=== PATIENT | female | born 1985 | race African-American/Black ===

== ENCOUNTER → 2023-01-31 | Outpatient (CLI) | payer BC ==
--- NOTE | 2023-01-31 15:40 | US ---
EXAMINATION TYPE: US pelvis complete transvag DATE OF EXAM: 01/31/2023 COMPARISON: follow up from - US CLINICAL INDICATION: Female, 37 years old with history of N83.202 UNSPECIFIED OVARIAN CYST, LEFT SIDE ; known fibroid uterus TECHNIQUE: Transvaginal (TV) and Transabdominal (TA) . Transabdominal sonographic images of the pel vis were acquired. Transvaginal sonographic images were medically necessary to better assess the fol lowing anatomy: left ovary and endometrium Date of LMP: 01/23/23 EXAM MEASUREMENTS: Uterus: 10.2 x 7.9 x 7.1 cm Endometrial Stripe: 0.9 cm Right Ovary: 3.4 x 2.0 x 2.4 cm Left Ovary: 2.6 x 1.9 x 2.8 cm 1. Uterus: retroflexed, numerous scattered fibroids as seen on last scan; fluid seen within the cerv ical canal 2. Endometrium: wnl 3. Right Ovary: wnl 4. Left Ovary: wnl 5. Bilateral Adnexa: wnl 6. Posterior cul-de-sac: 2.9x 2.0 x 1.0 cm fluid within the cds IMPRESSION: 1. No evidence for acute process. 2. Fibroid uterus. 3. Trace fluid in the pelvis likely physiologic. 4. Fluid within the cervical canal likely representing blood products.
== END | disposition home or self-care (01) ==
LOC: RADUSWWP 14:15
PROVIDERS: ATTEND Family Medicine
DX: D25.9 Leiomyoma of uterus, unspecified (principal); N83.202 Unspecified ovarian cyst, left side
CPT/HCPCS: 76830; 76856

== ENCOUNTER → 2023-08-21 | Outpatient (CLI) | payer BC ==
--- NOTE | 2023-08-21 15:49 | US ---
EXAMINATION TYPE: US pelvic complete DATE OF EXAM: 08/21/2023 COMPARISON: Ultrasound pelvis 01/31/2023 CLINICAL INDICATION: Female, 37 years old with history of N92.6 IRREG MENSES; Bleeding x 3 months - s ubsides for a day or two. Hx multiple Fibroids, TECHNIQUE: . Transabdominal sonographic images of the pelvis were acquired. Transvaginal sonographi c images were not done due to pathology Date of LMP: EXAM MEASUREMENTS: Uterus: 12.3 x 7.4 x 7.2 cm Endometrial Stripe: 0.9 cm Right Ovary: 3.4 x 1.7 x 1.7 cm Left Ovary: 3.3 x 1.8 x 2.9 cm Uterus: 12.3 x 7.4 x 7.2 cm Endometrial Stripe: 0.9 cm Right Ovary: 3.4 x 1.7 x 1.7 cm Left Ovary: 3.3 x 1.8 x 2.9 cm Spectral, color and waveform doppler imaging shows good arterial and venous flow within the ovaries ; there is no evidence for ovarian torsion. 5. Bilateral Adnexa: WNL 6. Posterior cul-de-sac: WNL Multiple fibroids largest = Posterior LUKE = 4.6 x 3.6 x 4.7 cm Superior Right Pedunculated = 3.5 x 3.3 x 3.4 cm IMPRESSION: 1. No ultrasound evidence for an acute process. 2. Fibroid changes of the uterus redemonstrated. 3. Endometrium is within normal limits.
== END | disposition home or self-care (01) ==
LOC: RADUSWWP 14:47
PROVIDERS: ATTEND Family Medicine
DX: D25.9 Leiomyoma of uterus, unspecified (principal); N92.6 Irregular menstruation, unspecified
CPT/HCPCS: 76856

== ENCOUNTER → 2024-05-08 | Outpatient (CLI) | payer OTHER ==
--- NOTE | 2024-05-08 16:05 | XR ---
EXAMINATION TYPE: XR shoulder complete 3 views LT DATE OF EXAM: 05/08/2024 Comparison: None Clinical History: 38-year-old female S46.012A STRAIN OF MUSC/TEND THE ROTATOR CUFF OF LEFT SHOULD Findings: AC joint appears congruent and intact. Subacromial space is preserved. No acute fracture, subluxation , or dislocation is seen. Visualized left hemithorax is clear. Impression: No acute osseous abnormality seen.
== END | disposition home or self-care (01) ==
LOC: RADXRMAIN 15:24
PROVIDERS: ATTEND Emergency Medicine
DX: S46.012A Strain of muscle(s) and tendon(s) of the rotator cuff of left shoulder, initial encounter (principal)

== ENCOUNTER → 2024-07-17 | Outpatient (CLI) | payer OTHER ==
--- NOTE | 2024-07-18 05:45 | MR ---
EXAMINATION TYPE: MR shoulder LT wo con DATE OF EXAM: 07/17/2024 COMPARISON: Left shoulder x-ray May 08, 2024 HISTORY: Left shoulder pain and limited range of movement for about 3 months due to work related inju ry TECHNIQUE: Multiplanar, multisequence imaging of the left shoulder is performed without contrast. FINDINGS: Rotator Cuff: Intact supraspinatus and infraspinatus tendons. Intact subscapularis tendon. Rotator cu ff muscle bulk is maintained. Acromioclavicular Joint: No significant spurring or narrowing. Glenohumeral Joint: No significant spurring. Tiny effusion favors physiologic. Labrum: The labrum appears grossly intact given limitation of non-arthrogram study. Biceps Tendon: The long head of biceps is in normal location within bicipital groove. Bone marrow signal: No focal abnormal marrow signal is appreciated. Other: Focal increased fluid subdeltoid/subacromial bursa. IMPRESSION: No rotator cuff or labral tear. Moderate subdeltoid/subacromial bursitis. [facility], , 07/18/2024 5:43 AM
== END | disposition home or self-care (01) ==
LOC: RADMRIMAIN 16:28
PROVIDERS: ATTEND Emergency Medicine
DX: S46.012D Strain of muscle(s) and tendon(s) of the rotator cuff of left shoulder, subsequent encounter (principal)

== ENCOUNTER → 2025-04-18 | Outpatient (CLI) | payer BC ==
--- NOTE | 2025-04-18 15:54 | MR ---
INDICATION: Patient age:Female; 39 years old; Reason for study: R51.9 HEADACHE, UNSPECIFIED; PHH. COMPARISON: None. TECHNIQUE: Multi planar, multi sequence imaging was performed through the brain without intravenous c ontrast. FINDINGS: The marcelino-white junctions, ventricular system, basal cisterns appear unremarkable. Age-appropriate cer ebral cortical volume. Diffusion-weighted imaging shows no evidence of restricted diffusion to sugges t acute/subacute infarct. Intracranial arterial flow voids are maintained. Midline structures show no abnormality. There are 2 small foci of T2/FLAIR hyperintense signal within the right frontal lobe bearden bcortical white matter. Largest measures up to 2 mm (series 601, image 23). The susceptibility weight ed images do not reveal any evidence for micro-hemorrhage. The bone marrow signal is within normal limits. The globes are unremarkable. Multiple mucous retenti on cysts within the inferior bilateral maxillary sinuses. IMPRESSION: 1. No evidence of intracranial mass or acute/subacute infarct. 2. Nonspecific two foci of white matter signal change within the right frontal lobe subcortical white matter. Etiologies include demyelinating disease, chronic migraines, Lyme disease, vasculitis, and o ther considerations. [facility], , 04/18/2025 3:52 PM
== END | disposition home or self-care (01) ==
LOC: RADMRIMAIN 14:59
PROVIDERS: ATTEND Family Medicine
DX: G37.9 Demyelinating disease of central nervous system, unspecified (principal); I77.6 Arteritis, unspecified; R90.82 White matter disease, unspecified
CPT/HCPCS: 70551